=== PATIENT | female | born 1970 | race Caucasian/White ===

== ENCOUNTER 2019-01-19 15:09 | Emergency (ER) | payer MEDICAID ==
[2019-01-19] MEDS: LIDOCAINE 2% (MDV) 20 ML INJ INJ (17:02)
== END 2019-01-19 17:17 | disposition home or self-care (01) ==
LOC: FTE 17:17
DX: L02.413 Cutaneous abscess of right upper limb (principal)
CPT/HCPCS: 10060; 99282-25